=== PATIENT | male | born 2000 | race Caucasian/White ===

== ENCOUNTER 2024-05-06 13:47 | Emergency (ER) | payer MEDICAID ==
[~2024-05-06] VITALS: Ht 167.6 cm; Wt 61.4 kg
[2024-05-06 13:48] VITALS: BP 112/45; PULSE 74; RESP 16; TEMP 98.4; O2SAT 99
[2024-05-06] MEDS ORDERED: ketorolac trometh 30MG/ML vial 30 MG/ML VIAL IM ONE (14:55)
== END 2024-05-06 14:58 | disposition home or self-care (01) ==
LOC: ER 13:48
DX: M25.552 Pain in left hip (principal)
CPT/HCPCS: 73502; 99284

== ENCOUNTER 2024-10-23 20:08 | Emergency (ER) | payer MEDICAID ==
[~2024-10-23] VITALS: Ht 175.3 cm; Wt 52.3 kg
[2024-10-23 20:12] VITALS: BP 112/59; PULSE 84; RESP 15; O2SAT 96
[2024-10-23] MEDS: cephalexin 250mg capsule PO ONE (21:04)
[2024-10-23] MEDS ORDERED: CEPH-585 PO (21:09)
== END 2024-10-23 21:19 | disposition home or self-care (01) ==
LOC: ER 20:09
DX: L08.9 Local infection of the skin and subcutaneous tissue, unspecified (principal)
CPT/HCPCS: 99283